=== PATIENT | female | born 1945 | race Caucasian/White ===

== ENCOUNTER 2020-01-05 07:00 | Outpatient (NON) | payer MEDICARE, SELFPAY ==
[2020-01-05 18:25] LABS: SARS-CoV-2 RNA PCR Negative
== END 2020-01-05 07:01 ==
PROVIDERS: PCP Internal Medicine; Visit Provider Internal Medicine
DX: Z01.812 Encounter for preprocedural laboratory examination (principal); Z20.828 Contact with and (suspected) exposure to other viral communicable diseases
CPT/HCPCS: 87635; C9803; U0003

== ENCOUNTER 2020-05-17 11:00 | Outpatient (RCR) | payer MEDICARE, SELFPAY ==
--- NOTE | 2020-04-22 12:31 | PTOPEVAL ---
INITIAL PHYSICAL THERAPY EVALUATION and PLAN OF CARE Thank you for referring Ela Gleason to [facility].? Ela is scheduled to be seen for physical therapy? 2x/week for 4 weeks. Please review, sign, date and return this plan of care SOPHIA. I agree with and certify that the following plan of care is medically necessary. Referring Physician Date Admitting Provider: Attending Provider: Jorge Luis Nair, Referring Provider: *PT Outpatient Evaluation Start: 04/22/20 10:56 Freq: Status: Active Protocol: Document 04/22/20 10:56 ALEXIS (Rec: 04/22/20 12:29 ALEXIS [id number]) Therapy Assessment Status Assessment Status Assessment Status Evaluation Outpatient Past Medical History Past Medical History Source of Past Medical History Patient Neurological History Hx Neurological Disorders No Significant History Cardiovascular History Hx Hypercholesterolemia Yes Respiratory History Hx Respiratory Disorders No Significant History Gastrointestinal History Hx Gastrointestinal Disorders No Significant History Genitourinary History Hx Genitourinary Disorders No Significant History Musculoskeletal History Hx Arthritis Yes Hx Back Pain Yes: used to see chiropractor Hx Spinal Surgery Yes: 2 cervical fusions, 1996, 2019 Endocrine History Hx Endocrine Disorders No Significant History HEENT History Hx Other HEENT Disorders Yes: some swallowing dysfunction since cervical fusion 2019 Integumentary History Hx Other Skin Disorders Yes: itchiness with scalp/skin Evaluation Information Problem Diagnosis upper and lower back pain Onset cervical fusion Cause January 12, 2020 Subjective Information Underwent cervical fusion - C4 Query Text:As Reported By Patient/ ,5 C5,6 - had previous spinal Family fusion ~ 20 years ago. Since she woke up from recent surgery - increased bilateral shoulder pain - has not decreased since then. Has a history of lumbar pain - which has worsened since cervical fusion. Uses ice for shoulder /neck pain as well as lower back. Looking down - increase in discomfort with neck and shoulders. Tries to walk on a daily basis - increase in difficulty today. Mornings - increased stiffness Back
--- NOTE | 2020-05-17 12:15 | PTOPEVAL ---
PHYSICAL THERAPY DISCHARGE SUMMARY Thank you for referring Ela Gleason to [facility][Note 3].? Ela has met most goals in PT, pain levels have decreased, slight gains with trunk and cervical ROM, and she is independent and compliant with her HEP. She is ready for d/c from PT to HEP. I agree with and certify that the following plan of care is medically necessary. Referring Physician Date Admitting Provider: Attending Provider: Jorge Luis Nair, MD Referring Provider: Therapy Assessment Status Assessment Status Assessment Status Discharge Evaluation Information Problem Diagnosis upper and lower back pain Subjective Information Ela states that she has Query Text:As Reported By Patient/ been feeling pretty good all Family week. Sleeping better - back pain not waking her up. If she has increase in her stress level - increase in upper trapezius pain - but as she calms herself down - the discomfort goes away. Limited with shopping ability to 45 minutes. Back to usual walking routine. Riding for too long in car - will cause increase in back discomfort. Bending down looking - like for cooking, reading, etc - will have increase in neck discomfort. Able to tolerate hair appointment much better this week. Ela plans to continue with HEP on a regular basis. Pain Assessment Self Report Pain Assessment Lower Posterior Back Reported Pain Level 0 Pain Description Aching Lowest Pain Intensity 0 Greatest Pain Intensity 4 Posterior Neck Reported Pain Level 7 Pain Description Tightness Lowest Pain Intensity 0 Greatest Pain Intensity 7 Other Pain Aggravating Factors stress Cervical and Lumbar ROM Cervical ROM Cervical Flexion (0-60) 25 Query Text:Active in Degrees Cervical Extension (0-70) 33 Query Text:Active in Degrees Cervical Lateral Flexion Right (0-50) 20 Query Text:Active in Degrees Cervical Lateral Flexion Left (0-50) 25 Query Text:Active in Degrees Cervical Rotation Right (0-90) 38 Query Text:Active in Degrees Cervical Rotation Left (0-90) 38 Query Text:Active in Degrees Lumbar ROM Lumbar Flexion (0-90) 30 Query Text:Active in Degrees
== END 2020-05-30 11:23 | disposition home or self-care (01) ==
LOC: ANHHIPT 11:00
PROVIDERS: PCP Internal Medicine; Visit Provider Internal Medicine
DX: M54.2 Cervicalgia (principal); M54.5 Low back pain
CPT/HCPCS: 97014; 97110; 97140; 97162; G0283

== ENCOUNTER 2020-11-06 10:00 | Outpatient (RCR) | payer MEDICARE, SELFPAY ==
--- NOTE | 2020-10-16 17:08 | PTOPEVAL ---
PHYSICAL THERAPY EVALUATION Thank you for referring Ela Gleason to [facility].? Ela was evaluated for the dx of BPPV. The patient is scheduled to be seen for therapy? 1 x/week for 4 weeks. Please review, sign, date and return this plan of care SOPHIA. I agree with and certify that the following plan of care is medically necessary. Referring Physician Date Attending Provider: Jorge Luis Nair, MD *PT Outpatient Evaluation Start: 10/16/20 15:48 Freq: Status: Active Protocol: Document 10/16/20 15:48 MLV (Rec: 10/16/20 16:53 MLV [id number]) Therapy Assessment Status Assessment Status Assessment Status Evaluation Evaluation Information Problem Diagnosis vertigo Onset 2 months ago Cause none Additional Evaluation Detail The patient has a hx of vertigo about 5 years ago and had therapy, which fixed symptoms until just recently. The patient saw her MD and was given meds but it didn't help . The patient has symptoms of dizziness that only occurs when laying down or getting up from laying down. The symptoms are severe, causing nausea and lasts about 1-2 minutes. The patient denies symptoms with any other daily activities or other times. Subjective Information The patient's goals is to be Query Text:As Reported By Patient/ rid of the dizziness. Family Pain Assessment Timing of Pain Assessment Timing of Pain Assessment Assessment Self Report Self Report Pain Level 0 Pain Score Pain Score 0: Self Report Cervical and Lumbar ROM Cervical ROM Reason Not Measured Surgery Precautions Cervical ROM Comments all motions limited due to a surgical fusion. Pain with cervical extension Upper Extremity Range of Motion General Upper Extremity Range of Motion Reason Not Measured WFL/Left,WFL/Right Lower Extremity Range of Motion General Lower Extremity Range of Motion Reason Not Measured WFL/Left,WFL/Right Bed Mobility Assessment Bed Mobility Bed Mobility Assistive Devices None Bed Type Mat Overall Bed Mobility Ability Independent Bed Mobility Comments supine<> sit labored and guarded due to cervical issues and multiple joint OA pain Gait Assessment Gait Assessme
--- NOTE | 2020-11-15 13:41 | PCPTNOTE ---
PHYSICAL THERAPY DISCHARGE Attending Provider: Jorge Luis Nair, Patient:Ela Gleason Date of :1945 Patient has not returned for any further treatments since 11/06/2020 due to being I with her HEP and minimal change with treatment; therefore she will be discharged at this time. The patient called and reported she just wants to continue on her own and will call if needs arise. Patient?s initial visit was on 10/16/2020 15:45 and she had a total of 3 visits. The goals have been partially met. Thank you for referring this patient to [facility]. Please review, sign, date and return this discharge summary SOPHIA. I have been updated about the patient's current status and I agree with discharge from the above service at this time. Referring Physician Date
== END 2020-11-18 10:50 | disposition home or self-care (01) ==
LOC: ANHPT 10:00
PROVIDERS: PCP Internal Medicine; Visit Provider Internal Medicine
DX: R42 Dizziness and giddiness (principal)
CPT/HCPCS: 97110; 97162

== ENCOUNTER → 2021-01-14 10:44 | Outpatient (CLI) | payer MEDICARE, SELFPAY ==
--- NOTE | ~2021-01-14 | MR_ITS ---
EXAMINATION: MR pelvis wo/w con DATE: 01/14/2021 11:54 INDICATION: Chronic left low back pain without sciatica. TECHNIQUE: Magnetic resonance imaging (MRI) of the pelvis was performed without and with 10 mL MultiH ance intravenous contrast. Sequences included sagittal PD-weighted FS FSE, axial oblique T1-weighted FSE, T1-weighted FS FSE, and T2-weighted FS FSE, coronal oblique T1-weighted FSE and T2-weighted FS F SE, axial T1-weighted FSE and T2-weighted FS FSE, and postcontrast axial oblique and coronal oblique T1-weighted FS FSE. COMPARISON: Lumbar spine MRI 11/30/2012 FINDINGS: There is lumbar levoscoliosis and severe spondylosis. A 7 mm sclerotic lesion in left ilium is likely a benign bone island. There is mild osteoarthritis of the sacroiliac joints. There is mild osteoarth ritis of the hips. 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 The gluteus minimus and gluteus medius tendons are normal. The iliopsoas tendons are normal. There is moderate tendinopathy of the h amstring origins bilaterally. Pelvic floor relaxation is noted. IMPRESSION: 1. Mild osteoarthritis of the sacroiliac joints and hip joints. 2. Severe lumbar spondylosis. 3. Lumbar levoscoliosis. Reviewed, dictated and finalized at location A.
[2021-01-14 11:11] LABS: Estimated Glomerular Filt Rate > 60
== END ==
PROVIDERS: PCP Internal Medicine
DX: M47.896 Other spondylosis, lumbar region (principal)
CPT/HCPCS: 72197; A9577

== ENCOUNTER 2021-08-28 10:43 | Outpatient (CLI) | payer MEDICARE, SELFPAY ==
[2021-08-28 11:12] LABS: Hematocrit 38.6 % (37.0-47.0); Hemoglobin 12.2 g/dL (12.0-15.0); Mean Corpuscular HGB Conc 31.6 g/dl (32-36); Mean Corpuscular Hemoglobin 28.9 pg (26-34); Mean Corpuscular Volume 91.5 fl (80-100); Mean Platelet Volume 9.9 fl (7.4-10.4); Platelet Count Result 317 k/mm3 (150-375); Red Blood Count 4.22 M/mm3 (4.2-5.4); Red Cell Distribution Width 14.4 % (11.5-14.5)
[2021-08-28 11:37] LABS: Alanine Aminotransferase 17 U/L (6-35); Albumin Level 4.3 g/dL (3.5-5.1); Alkaline Phosphatase 69 U/L (38-126); Anion Gap 5 mmol/L (8-16); Aspartate Amino Transferase 27 U/L (14-36); Bilirubin,Total 0.2 mg/dL (0.2-1.3); Blood Urea Nitrogen 15 mg/dL (7-17); Calcium 8.7 mg/dL (8.4-10.2); Carbon Dioxide 29 mmol/L (22-30); Chloride 103 mmol/L (98-107); Estimated Glomerular Filt Rate > 60; Glucose 106 mg/dL (65-110); Phosphorus 4.3 mg/dL (2.5-4.5); Potassium 4.2 mmol/L (3.4-5.0); Sodium 137 mmol/L (137-145)
[2021-08-28 11:49] LABS: Parathyroid Intact 46.1 pg/mL (7.5-53.5)
[2021-08-28 12:16] LABS: Vitamin D 25 Hydroxy 71.1 ng/mL
== END 2021-08-28 10:44 | disposition home or self-care (01) ==
LOC: ANHLAB 10:58
PROVIDERS: PCP Internal Medicine; Visit Provider Internal Medicine Endocrinology, Diabetes & Metabolism
DX: R79.89 Other specified abnormal findings of blood chemistry (principal); M81.0 Age-related osteoporosis without current pathological fracture
CPT/HCPCS: 36415; 80053; 80069; 82306; 83970; 85027

== ENCOUNTER 2022-10-28 07:23 | Outpatient (CLI) | payer MEDICARE, SELFPAY ==
--- NOTE | ~2022-10-28 | CT_ITS ---
EXAMINATION: CT abdomen pelvis w con DATE: 10/28/2022 08:12 INDICATION: Abdominal pain TECHNIQUE: Computed tomography (CT) of the abdomen and pelvis was performed with 100 mL Omnipaque-350 intravenous contrast. Automated exposure control and iterative reconstruction technique were employe d. The dose-length product was 249.22 mGy-cm. COMPARISON: None FINDINGS: Pectus excavatum which displaces the normal sized heart laterally into the inferior left hemithorax. Heart size is normal. No pericardial effusion. Mild atelectasis at the bilateral lower lobes. No pleu ral effusion. Several small scattered hepatic cysts measuring up to 1.3 cm. Gallbladder, spleen, panc reas, bilateral adrenal glands and left kidney are normal. 1 cm cyst at the lower pole of the right k idney. There are couple sigmoid diverticula without adjacent from trace stranding to suggest divertic ulitis. Small bowel and appendix are normal. Bladder is decompressed which limits evaluation. The [place] is not identified and has likely been surgically resected. No free intraperitoneal gas or fluid. No pathologically enlarged abdominal or pelvic lymphadenopathy. Mild lumbar levoscoliosis with severe spondylosis. Right total hip arthroplasty. Mild to moderate left hip osteoarthritis. IMPRESSION: 1. No acute intra-abdominal/pelvic process. Reviewed, dictated and finalized at location B.
[2022-10-28 07:46] LABS: Estimated Glomerular Filt Rate > 60
== END 2022-10-28 07:24 | disposition home or self-care (01) ==
PROVIDERS: PCP Physician Assistant Medical; Visit Provider Family Medicine
DX: R10.2 Pelvic and perineal pain (principal)
CPT/HCPCS: 74177; Q9967

== ENCOUNTER 2024-11-29 02:04 | Day surgery (SDC) | payer MEDICARE, SELFPAY ==
[2024-11-15 13:04] VITALS: BMI 18.0
[2024-11-29 08:09] VITALS: BP 114/55; PULSE 70; RESP 20; TEMP 36.9; O2SAT 100; BMI 17.9
--- NOTE | 2024-11-29 08:10 | WPDANESEPPF ---
Anes - Initial Pre Proc Eval Procedure: Operation Date: 11/29/24 09:30 Proposed Procedures p Esophagogastroduodenoscopy - Pal Gonzales MD Date/Time: 11/29/24 08:10 Surgeon: Pal Gonzales MD Pre Op Diagnosis: Gastro-esophageal reflux disease without esophagit Patient Data Age: 79 Gender: F Height: 1.7 m Weight: 52 kg Last Vital Signs Temp 36.9 C 11/29/24 08:09 Pulse 70 11/29/24 08:09 Resp 20 11/29/24 08:09 BP 114/55 L 11/29/24 08:09 Pulse Ox 100 11/29/24 08:09 O2 Del Method Room Air 11/29/24 08:09 Allergies Allergy/AdvReac Type Severity Reaction Status Date / Time ciprofloxacin Allergy Intermediate mouth sores Verified 11/29/24 08:07 ibandronate sodium Allergy Unknown Itching Verified 11/29/24 08:07 [id number] Reductase AdvReac Unknown myalgia Verified 11/29/24 08:07 Inhibitor buprenorphine (From Butrans) AdvReac dizzy Verified 11/29/24 08:07 cefdinir AdvReac Diarrhea Verified 11/29/24 08:07 boniva AdvReac Unknown Hives Uncoded 11/15/24 13:00 Home Medications ?Medication ?Instructions ?Recorded ?Confirmed ?Type calcium carbonate (Calcium 600) 600 mg PO DAILY 08/28/21 11/29/24 History cholecalciferol (vitamin D3) 25 25 mcg PO DAILY 08/28/21 11/29/24 History mcg (1,000 unit) tablet cyanocobalamin (vitamin B-12) 1,000 mcg IM MONTHLY 12/10/22 11/29/24 History 1,000 mcg/mL injection solution ferrous sulfate 325 mg (65 mg 325 mg PO DAILY #30 tabs 03/02/23 11/15/24 Rx iron) tablet,delayed release ondansetron 4 mg disintegrating 4 mg PO Q8H PRN nausea and 08/11/24 11/29/24 Rx tablet vomiting #20 tabs pregabalin 75 mg capsule (Lyrica) 75 mg PO BID #60 caps 09/15/24 11/29/24 Rx fluoxetine 10 mg capsule (Prozac) 10 mg PO DAILY #30 caps 09/28/24 11/29/24 Rx omeprazole 40 mg capsule,delayed 40 mg PO BID #60 caps 10/04/24 11/29/24 Rx release hydrocodone 5 mg-acetaminophen 325 1 tablet PO Q8H PRN pain #60 tabs 11/07/24 11/29/24 Rx mg tablet famotidine 40 mg tablet 40 mg PO HS 11/15/24 11/29/24 History hydroxyzine HCl 10 mg tablet 10 mg PO TID PRN itching #90 tabs 11/17/24 11/29/24 Rx Patient hx anesthesia problems: none Family hx anesthesia problems: none Results Review: All pre-operative results and documents have been reviewed as part of the pre-operative evaluation. [facility] Past Medical History Medical History Osteoarthritis Vitamin D deficiency Iron deficiency anemia Chronic pain Pruritus Insomnia Pelvic pain Dysphagia Osteoporosis Anxiety High blood cholesterol Surgical History Surgical History History of total right hip replacement 07/2022 H/O neck surgery S/P total hysterectomy and BSO (bilateral salpingo-oophorectomy) Family History Family History Sibling Acute myocardial infarction Other Hypertension Social History Social History Social History: 09/12/24 Patient declined SDOH Smoking status: Never smoker Alcohol intake: current Alcohol use details: rarely Substance use: never Substance use type: does not use Do You Feel Safe in your Home?: Yes Lack of Transportation: No Lack of Food: Never True Current Housing: I Have Housing Concerned About Future Housing: No Difficulty Paying Gas/Electric Bills: No Difficulty Paying for Meds: No Currently Unemployed: No Education: High School Diploma/GED Difficulty w/ Childcare or Family Care: No Living arrangements: with family Occupation/Education: retired Gender identity (if verbalized by the patient): Female Sexual Orientation (if Verbalized by the Patient): Straight or Heterosexual Spiritual care concerns: No Anes - Eval Final PreProcedure Day of Procedure 11/29/24 08:10 Patient weight: normal Heart: regular rate and rhythm Lungs: clear to auscultation and normal air movement Airway: Mallampati scale class II Neurological: alert and oriented Last oral intake: >/= 8 hours ASA classification: II Emergent: no Anesthetic plan: proceed Anesthesia type and monitoring: general GIVS and standard monitoring Results Review: All pre-operative results and documents have been reviewed as part of the pre-operative evaluation. Informed Consent: The patient's anesthetic plan and its attendant risks and benefits were discussed with the patient/family/POA. Questions were solicited and answers provided to the satisfaction of the patient/family/POA.
[2024-11-29] MEDS: LACTATED RINGERS 1,000 ML 150 ML IV CONT (08:22)
[2024-11-29] MEDS: SIMETHICONE ORAL SUSPENSION 20 MG/0.3 ML 30 ML BOTTLE 1.8 ML PO (08:27)
--- NOTE | 2024-11-29 08:46 | PM.IMHP ---
H&P: HPI History of Present Illness Date/Time: 11/29/24 08:46 Chief Complaint: GERD Narrative: this patient is referred for EGD. She has been complaining of intermittent heartburn for years, currently partially controlled with omeprazole which she takes Twice a day. There is no history of dysphagia, nausea, vomiting or weight loss. Review of Systems Review of Systems: All systems reviewed & are unremarkable except as noted in HPI and below PMFSH Past Medical History Medical History Osteoarthritis Vitamin D deficiency Iron deficiency anemia Chronic pain Pruritus Insomnia Pelvic pain Dysphagia Osteoporosis Anxiety High blood cholesterol Surgical History Surgical History History of total right hip replacement 07/2022 H/O neck surgery S/P total hysterectomy and BSO (bilateral salpingo-oophorectomy) Family History Family History Sibling Acute myocardial infarction Other Hypertension Social History Social History Social History: 09/12/24 Patient declined SDOH Smoking status: Never smoker Alcohol intake: current Alcohol use details: rarely Substance use: never Substance use type: does not use Do You Feel Safe in your Home?: Yes Lack of Transportation: No Lack of Food: Never True Current Housing: I Have Housing Concerned About Future Housing: No Difficulty Paying Gas/Electric Bills: No Difficulty Paying for Meds: No Currently Unemployed: No Education: High School Diploma/GED Difficulty w/ Childcare or Family Care: No Living arrangements: with family Occupation/Education: retired Gender identity (if verbalized by the patient): Female Sexual Orientation (if Verbalized by the Patient): Straight or Heterosexual Spiritual care concerns: No Meds Home Medications and Allergies Home Medications ?Medication ?Instructions ?Recorded ?Confirmed ?Type calcium carbonate (Calcium 600) 600 mg PO DAILY 08/28/21 11/29/24 History cholecalciferol (vitamin D3) 25 25 mcg PO DAILY 08/28/21 11/29/24 History mcg (1,000 unit) tablet cyanocobalamin (vitamin B-12) 1,000 mcg IM MONTHLY 12/10/22 11/29/24 History 1,000 mcg/mL injection solution ferrous sulfate 325 mg (65 mg 325 mg PO DAILY #30 tabs 03/02/23 11/15/24 Rx iron) tablet,delayed release ondansetron 4 mg disintegrating 4 mg PO Q8H PRN nausea and 08/11/24 11/29/24 Rx tablet vomiting #20 tabs pregabalin 75 mg capsule (Lyrica) 75 mg PO BID #60 caps 09/15/24 11/29/24 Rx fluoxetine 10 mg capsule (Prozac) 10 mg PO DAILY #30 caps 09/28/24 11/29/24 Rx omeprazole 40 mg capsule,delayed 40 mg PO BID #60 caps 10/04/24 11/29/24 Rx release hydrocodone 5 mg-acetaminophen 325 1 tablet PO Q8H PRN pain #60 tabs 11/07/24 11/29/24 Rx mg tablet famotidine 40 mg tablet 40 mg PO HS 11/15/24 11/29/24 History hydroxyzine HCl 10 mg tablet 10 mg PO TID PRN itching #90 tabs 11/17/24 11/29/24 Rx Allergies Allergy/AdvReac Type Severity Reaction Status Date / Time ciprofloxacin Allergy Intermediate mouth sores Verified 11/29/24 08:07 ibandronate sodium Allergy Unknown Itching Verified 11/29/24 08:07 Ziofxkr-MGB-[id number] Reductase AdvReac Unknown myalgia Verified 11/29/24 08:07 Inhibitor buprenorphine (From Butrans) AdvReac dizzy Verified 11/29/24 08:07 cefdinir AdvReac Diarrhea Verified 11/29/24 08:07 boniva AdvReac Unknown Hives Uncoded 11/15/24 13:00 Vital Signs Vital Signs - 24 hr 11/29/24 08:09 Temperature 98.5 F Pulse Rate 70 Respiratory Rate 20 Blood Pressure 114/55 L Pulse Oximetry 100 Oxygen Delivery Room Air Exam Const: General: cooperative and healthy appearing Resp: Effort & Inspection: normal respiratory effort and able to speak in complete sentences Auscultation: clear to auscultation bilaterally Cardio: Rate: regular rate Rhythm: regular rhythm GI: Inspection: normal to inspection GI Palp: No No hepatosplenomegaly present Auscultation: normal bowel sounds Rectal Exam: deferred Skin: General skin exam: normal color Psych: Appearance: grossly normal Mental Status: mental status grossly normal Assessment and Plan Assessment and plan (1) GERD (gastroesophageal reflux disease): Code(s): K21.9 - Gastro-esophageal reflux disease without esophagitis Status: Acute Assessment and Plan: The patient is deemed a good candidate for the procedure. Consent signed. Will proceed.
[2024-11-29 09:01] VITALS: BP 100/48; PULSE 63; RESP 12; O2SAT 100
--- NOTE | 2024-11-29 09:02 | S_PTH ---
PATIENT: Ela Gleason LOC: [facility] U#:[id number] AGE/SX: 79/F ROOM: RE11/29/[address]: Pal Gonzales MD : 1945 BED: DIS: 11/29/2024 SPEC #: [id number] RECD: 11/29/24 10:18 STATUS: DAYANA RETeresa #: [id number] MEGHNA: 11/29/24 09:[address]: Pal Gonzales DEPT: [facility] Surgical RECD BY: Alisha De La Garza ENTERED: 11/29/24 10:18 SP TYPE: Surgical OTHR DR: Yolie Robb PA-C Tissues: A - Gastric Biopsy B - Gastric Biopsy Procedures: Hematoxylin and Eosin Stain Gross and Microscopic Level 4 H.Pylori
[2024-11-29 09:11] VITALS: BP 108/58; PULSE 62; RESP 21; O2SAT 100
[2024-11-29 09:21] VITALS: BP 106/59; PULSE 60; RESP 19; O2SAT 100
== END 2024-11-29 09:43 | disposition home or self-care (01) ==
PROVIDERS: PCP Physician Assistant Medical; Referring Provider Nurse Practitioner; Visit Provider Internal Medicine Gastroenterology
PROC: 0DJ08ZZ Inspection of Upper Intestinal Tract, Via Natural or Artificial Opening Endoscopic (ICD-10-PCS; CPT 43239; principal; 2024-11-29 09:30)
DX: K21.9 Gastro-esophageal reflux disease without esophagitis (principal); K31.7 Polyp of stomach and duodenum; K29.50 Unspecified chronic gastritis without bleeding; E55.9 Vitamin D deficiency, unspecified; D50.9 Iron deficiency anemia, unspecified; M81.0 Age-related osteoporosis without current pathological fracture; E78.00 Pure hypercholesterolemia, unspecified; G89.29 Other chronic pain; G47.00 Insomnia, unspecified; F41.9 Anxiety disorder, unspecified; M19.90 Unspecified osteoarthritis, unspecified site; Z79.891 Long term (current) use of opiate analgesic; Z98.890 Other specified postprocedural states; Z98.1 Arthrodesis status; Z82.49 Family history of ischemic heart disease and other diseases of the circulatory system
CPT/HCPCS: 43239; 88305; 88342; J2704; J7120